=== PATIENT | male | born 1950 | race Caucasian/White ===

== ENCOUNTER 2017-07-16 11:25 | Emergency (ER) | payer MEDICARE ==
[~2017-07-16] VITALS: Ht 188 cm; Wt 102.1 kg
--- NOTE | 2017-07-16 11:39 | PHYS DOC ---
Adult General Chief Complaint Chief Complaint: MULTIPLE COMPLAINTS HPI HPI Patient is a 66 year old male who presents with laceration. He states last night he must the past and he put his left arm to the coffee table that was glass. He states he woke up this morning and was a puddle of blood. He states he feels very weak and having a hard time walking. He is unsure when his last tetanus shot was. He does smoke 2 packs per day, he states he doesn't have a primary care physician. He denies any past medical history, allergies meds. He is hypoxic at 88% and on 2 L of oxygen currently. He states he doesn't have oxygen at home. Review of Systems Review of Systems Constitutional: Denies fever or chills [] Eyes: Denies change in visual acuity, redness, or eye pain [] HENT: Denies nasal congestion or sore throat [] Respiratory: Denies cough or shortness of breath [] Cardiovascular: No additional information not addressed in HPI [] GI: Denies abdominal pain, nausea, vomiting, bloody stools or diarrhea [] : Denies dysuria or hematuria [] Musculoskeletal: Denies back pain or joint pain [] Integument: Denies rash, positive for left arm laceration Neurologic: Denies headache, focal weakness or sensory changes [] Endocrine: Denies polyuria or polydipsia [] Current Medications Current Medications Current Medications Medications (Trade) Dose Ordered Sig/[facility] Start Time Stop Time Status Last Admin Dose Admin Aspirin (Sharmila Aspirin) 325 mg 1X ONCE 07/16/17 15:15 07/16/17 15:16 DC 07/16/17 15:21 325 MG Diphtheria/ Tetanus/Acell Pertussis (Boostrix) 0.5 ml ONCE ONCE 07/16/17 12:15 07/16/17 12:16 DC 07/16/17 12:18 0.5 ML Lidocaine/ Epinephrine (Let Topical) 3 ml 1X ONCE 07/16/17 12:15 07/16/17 12:16 DC 07/16/17 12:18 3 ML Prednisone (Prednisone) 50 mg 1X ONCE 07/16/17 15:30 07/16/17 15:32 DC 07/16/17 15:48 50 MG Allergies Allergies Allergies Coded Allergies Type Severity Reaction Last Updated Verified No Known Drug Allergies 07/16/17 No Physical Exam Physical Exam Constitutional: Well developed, well nourished, no acute distress, non-toxic appearance. [] HENT: Normocephalic, atraumatic, bilateral external ears normal, oropharynx moist, no oral exudates, nose normal. [] Eyes: PERRLA, EOMI, conjunctiva normal, no discharge. [] Neck: Normal range of motion, no tenderness, supple, no stridor. [] Cardiovascular:Heart rate regular rhythm, no murmur [] Lungs & Thorax: Bilateral breath sounds clear to auscultation [] Abdomen: Bowel sounds normal, soft, no tenderness, no masses, no pulsatile masses. [] Skin: Warm, dry, no erythema, no rash. An L shaped rash on the left forearm that 's 2 cm x 2 cm in length Back: No tenderness, no CVA tenderness. [] Extremities: No tenderness, no cyanosis, no clubbing, ROM intact, no edema. [] Neurologic: Alert and oriented X 3, normal motor function, normal sensory function, no focal deficits noted. [] Psychologic: Affect normal, judgement normal, mood normal. [] Current Patient Data Vital Signs Vital Signs Date Time Temp Pulse Resp B/P (MAP) Pulse Ox O2 Delivery O2 Flow Rate FiO2 07/16/17 13:52 78 91/56 (68) 91 Nasal Cannula 2.0 07/16/17 11:40 97.3 18 97.3 Lab Values Laboratory Tests Test 07/16/17 12:08 07/16/17 12:40 White Blood Count 15.2 x10^3/uL (4.0-11.0) H Red Blood Count 5.01 x10^6/uL (4.30-5.70) Hemoglobin 15.1 g/dL (13.0-17.5) Hematocrit 47.3 % (39.0-53.0) Mean Corpuscular Volume 94 fL (79-100) Mean Corpuscular Hemoglobin 30 pg (25-35) Mean Corpuscular Hemoglobin Concent 32 g/dL (31-37) Red Cell Distribution Width 15.2 % (11.5-14.5) H Platelet Count 208 x10^3/uL (140-400) Neutrophils (%) (Auto) 87 % (31-73) H Lymphocytes (%) (Auto) 7 % (24-48) L Monocytes (%) (Auto) 6 % (0-9) Eosinophils (%) (Auto) 0 % (0-3) Basophils (%) (Auto) 0 % (0-3) Neutrophils # (Auto) 13.2 x10^3uL (1.8-7.7) H Lymphocytes # (Auto) 1.0 x10^3/uL (1.0-4.8) Monocytes # (Auto) 0.9 x10^3/uL (0.0-1.1) Eosinophils # (Auto) 0.0 x10^3/uL (0.0-0.7) Basophils # (Auto) 0.1 x10^3/uL (0.0-0.2) Segmented Neutrophils % 83 % (35-66) H Lymphocytes % 10 % (24-48) L Atypical Lymphocytes % (Manual) 3 % (0-0) H Monocytes % 4 % (0-10) Platelet Estimate Adequate (ADEQUATE) Prothrombin Time 15.0 SEC (11.7-14.0) H Prothrombin Time INR 1.3 (0.8-1.1) H Sodium Level 138 mmol/L (136-145) Potassium Level 4.8 mmol/L (3.5-5.1) Chloride Level 97 mmol/L (98-107) L Carbon Dioxide Level 36 mmol/L (21-32) H Anion Gap 5 (6-14) L Blood Urea Nitrogen 30 mg/dL (8-26) H Creatinine 1.8 mg/dL (0.7-1.3) H Estimated GFR (Cockcroft-Gault) 37.7 Glucose Level 203 mg/dL (70-99) H Calcium Level 8.5 mg/dL (8.5-10.1) Magnesium Level 1.9 mg/dL (1.8-2.4) Total Bilirubin 1.0 mg/dL (0.2-1.0) Direct Bilirubin 0.4 mg/dL (0.0-0.2) H Aspartate Amino Transferase (AST) 29 U/L (15-37) Alanine Aminotransferase (ALT) 29 U/L (16-63) Alkaline Phosphatase 73 U/L (46-116) Creatine Kinase 209 U/L (39-308) Creatine Kinase MB (Mass) 8.7 ng/mL (0.0-3.6) H Creatine Kinase MB Relative Index 4.2 % (0-4) H Troponin I Quantitative 1.302 ng/mL (0.000-0.055) HZ-Plj-E-Type Natriuretic Peptide 4116 pg/mL (0-124) H Total Protein 5.3 g/dL (6.4-8.2) L Albumin 2.5 g/dL (3.4-5.0) L Thyroid Stimulating Hormone (TSH) 2.306 uIU/mL (0.358-3.74) Laboratory Tests 07/16/17 12:08 Laboratory Tests 07/16/17 12:40 EKG EKG EKG shows sinus rhythm with rate of 87 bpm with right ventricular hypertrophy noted, no ST elevations appreciated, T-wave inversions noted throughout the precordial leads V1 through V6, leads 3, aVF, normal axis, QTC 439 ms, as interpreted by me. Radiology/Procedures Radiology/Procedures [address] [address] IMAGING REPORT Signed PATIENT: SARAHY RAO ACCOUNT: [id number] : 1950 LOCATION: ER AGE: 66 SEX: M EXAM STATUS: REG ER ORD. PHYSICIAN: BILL MARROQUIN MD REASON: laceration PROCEDURE: PORTABLE CHEST 1V EXAM: Chest one view. HISTORY: Trauma, hypoxia. COMPARISON: None. FINDINGS: A frontal view of the chest is obtained. There are no confluent infiltrates. There is no pneumothorax or pleural effusion. The heart is not enlarged. IMPRESSION: 1. No confluent infiltrates. DICTATED and SIGNED BY: HOLLY LOONEY MD DATE: 07/16/17 1244 CC: BILL MARROQUIN MD; NO PCP ~ [address] [id number] IMAGING REPORT Signed PATIENT: SARAHY RAO ACCOUNT: [id number] : 1950 LOCATION: ER AGE: 66 SEX: M EXAM STATUS: REG ER ORD. PHYSICIAN: BILL MARROQUIN MD REASON: laceration PROCEDURE: FOREARM LEFT Examination: 2 views of the left forearm History: History of injury, laceration to forearm Comparison: None available Findings: The alignment of the radius, ulna grossly appears unremarkable Minimal soft tissue irregularity identified in the dorsal aspect of the distal forearm probably soft tissue injury Impression: No acute osseous findings. DICTATED and SIGNED BY: HILTON VILLAGOMEZ MD DATE: 07/16/17 1244 CC: BILL MARROQUIN MD; NO PCP ~ Impressions: Non-STEMI Left forearm laceration Syncope Tobacco abuse Hypoxemia Weakness Course & Med Decision Making Course & Med Decision Making Pertinent Labs and Imaging studies reviewed. (See chart for details) She presented with a left forearm laceration happened greater then 12 hours ago. This was x-rayed and she acute abnormalities and it was cleaned out and Steri-Strips placed. His tetanus shot was updated. His EKG shows T-wave inversions diffusely through the precordial leads, he doesn't have any chest pain but does complain about weakness. His troponin is elevated at 1. Initially his oxygen level was 84% and is on 3 L. I called and had him admitted and placed a cardiology consultation however the patient is refusing to be admitted. I had several long (15 minute plus) conversations with him each time regarding the need for him to stay the fact that he wants to leave AGAINST MEDICAL ADVICE affect that he could go home and or worse becomes severely disabled secondary to his decision. He states he understands and appreciates my concern and wants to leave. He was walked around the department his oxygen level was 88-94% on room air. He is being signed out AGAINST MEDICAL ADVICE with prednisone for the next 5 days 50 mg in addition to an albuterol inhaler and told to take aspirin 81 mg daily. He is given cardiology follow-up and instructed return back to ER if he changes his mind, if his symptoms get worse or has any other concerns. Dragon Disclaimer Dragon Disclaimer This electronic medical record was generated, in whole or in part, using a voice recognition dictation system. Departure Departure Impression: Primary Impression: Non-STEMI (non-ST elevated myocardial infarction) Disposition: AGAINST MEDICAL ADVICE Condition: GUARDED Referrals: JOSEP FUENTES MD Patient Instructions: Myocardial Infarction, Non-ST Segment Elevation Additional Instructions: You have decided to leave AGAINST MEDICAL ADVICE. You are having a heart attack at this time with elevated blood work consistent with heart damage. You are also needing oxygen at home. You don't want to stay to have your heart attack and low oxygen levels treated. You could become severely disabled where you can' t walk without severe shortness of breath or extreme weakness. You have been explained the chances of dying and/or becoming severely disabled if you leave a you are willing to accept these risks. You will need to take aspirin 81 mg daily , he also being discharged with prednisone 50 mg for the next 5 days and an albuterol inhaler. You need to stop smoking. If you change your mind, you have some worsening pain, weakness, troubles breathing or other concerns please return back to the emergency department for admission and treatment for your heart attack and other issues. Scripts Albuterol Sulfate (PROAIR HFA INHALER) 8.5 Gm Hfa.aer.ad 1-2 PUFF INH PRN Q6HRS Y for SHORTNESS OF BREATH, #1 INHALER 3 Refills Prov: BILL MARROQUIN MD 07/16/17 Prednisone (PREDNISONE) 50 Mg Tablet 1 TAB PO DAILY, #5 TAB Prov: BILL MARROQUIN MD 07/16/17 BILL MARROQUIN MD Jul 16, 2017 11:39
[2017-07-16] MEDS ORDERED: LIDOCAINE/EPI/TETRACAINE TOPICAL GEL 3 ML. TP ONE (12:15)
[2017-07-16] MEDS ORDERED: DIPHTH,PERTUSS(ACELL),TET TOX 0.5 ML DISP.SYRIN. VAX IM ONE (12:15)
[2017-07-16 12:22] LABS: BASO # 0.1 x10^3/uL (0.0-0.2); BASO % 0 % (0-3); EOS % 0 % (0-3); HEMATOCRIT 47.3 % (39.0-53.0); HEMOGLOBIN 15.1 g/dL (13.0-17.5); LYMPH % 7 % (24-48); MEAN CORPUSCULAR HEMOGLOBIN 30 pg (25-35); MEAN CORPUSCULAR HGB CONC 32 g/dL (31-37); MEAN CORPUSCULAR VOLUME 94 fL (79-100); MONO % 6 % (0-9); NEUT % 87 % (31-73); PLATELET COUNT 208 x10^3/uL (140-400); RED BLOOD COUNT 5.01 x10^6/uL (4.30-5.70); RED CELL DISTRIBUTION WIDTH 15.2 % (11.5-14.5); WHITE BLOOD COUNT 15.2 x10^3/uL (4.0-11.0)
--- NOTE | 2017-07-16 12:41 | EKG ---
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
[2017-07-16 12:43] LABS: INR 1.3 (0.8-1.1)
[2017-07-16 13:03] LABS: ALBUMIN 2.5 g/dL (3.4-5.0); CALCIUM 8.5 mg/dL (8.5-10.1); CREATININE 1.8 mg/dL (0.7-1.3); DIRECT BILIRUBIN 0.4 mg/dL (0.0-0.2); GFR 37.7; MAGNESIUM 1.9 mg/dL (1.8-2.4); POTASSIUM 4.8 mmol/L (3.5-5.1); TOTAL PROTEIN 5.3 g/dL (6.4-8.2)
[2017-07-16 13:19] LABS: CKMB MASS 8.7 ng/mL (0.0-3.6)
[2017-07-16 13:22] LABS: PLT ESTIMATE ADEQUATE (ADEQUATE)
--- NOTE | 2017-07-16 13:23 | RAD ---
EXAM: Chest one view. HISTORY: Trauma, hypoxia. COMPARISON: None. FINDINGS: A frontal view of the chest is obtained. There are no confluent infiltrates. There is no pneumothorax or pleural effusion. The heart is not enlarged. IMPRESSION: 1. No confluent infiltrates.
--- NOTE | 2017-07-16 13:23 | RAD ---
Examination: 2 views of the left forearm History: History of injury, laceration to forearm Comparison: None available Findings: The alignment of the radius, ulna grossly appears unremarkable Minimal soft tissue irregularity identified in the dorsal aspect of the distal forearm probably soft tissue injury Impression: No acute osseous findings.
[2017-07-16] MEDS ORDERED: ASPIRIN 325 MG TABLET PO ONE (15:15)
[2017-07-16] MEDS ORDERED: predniSONE 10 MG TABLET PO ONE (15:30)
[2017-07-16] MEDS ORDERED: PROAIR HFA8.5 GM INH (15:36)
[2017-07-16] MEDS ORDERED: PRED50TA PO (15:36)
[2017-07-16 16:00] VITALS: BP 103/67
== END 2017-07-16 16:10 | disposition left against medical advice (07) ==
LOC: ER 11:25
DX: I21.4 Non-ST elevation (NSTEMI) myocardial infarction (principal); S51.812A Laceration without foreign body of left forearm, initial encounter; F17.210 Nicotine dependence, cigarettes, uncomplicated; W25.XXXA Contact with sharp glass, initial encounter; Y93.89 Activity, other specified; Y99.8 Other external cause status; Y92.89 Other specified places as the place of occurrence of the external cause
CPT/HCPCS: 71010; 73090; 80048; 80076; 82553; 83735; 83880; 84443; 84484; 85007; 85025; 85610; 90471; 90715; 93005; 99285; J7512